=== PATIENT | male | born 1995 | race Two or more races ===

== ENCOUNTER 2019-07-16 02:34 | Emergency (ER) | payer MEDICAID ==
[~2019-07-16] VITALS: Ht 170.2 cm; Wt 65.8 kg
[2019-07-16 02:41] VITALS: Ht 170.2 cm; Wt 65.8 kg
[2019-07-16 05:08] LABS: AMPHETAMINE QUAL UR NONE DETECTED (See below)
[2019-07-16 06:27] VITALS: BP 109/68
== END 2019-07-16 06:27 | disposition home or self-care (01) ==
LOC: EDBD 02:34 → ED 02:34
PROVIDERS: Emergency Medicine
DX: T40.991A Poisoning by other psychodysleptics [hallucinogens], accidental (unintentional), initial encounter (principal); Z88.0 Allergy status to penicillin; Y92.89 Other specified places as the place of occurrence of the external cause
CPT/HCPCS: J2060; J7030